=== PATIENT | female | born 1995 | race Caucasian/White ===

== ENCOUNTER 2024-11-29 19:43 | Emergency (ER) | payer SELFPAY ==
[2024-11-29 19:45] VITALS: BP 125/89
[2024-11-29 23:05] VITALS: BMI 22.4
[2024-11-29 23:15] VITALS: BP 202/100
--- NOTE | 2024-11-30 00:13 | ED.GENMED ---
History of Present Illness
General
Chief Complaint: Back Pain
Source: patient
Exam Limitations: none
Time Seen by Provider: 11/29/24 22:34
Nursing documentation reviewed up to this point in time: agreed with
History of Present Illness
History of Present Illness:
Patient to ED with left lower back pain radiating down LLE. Symptoms started apptox 6 mos ago and continue. No history of trauma Denies fever/chills No bowel or bladder issues, no saddle paresthesia, no weakness in extremities. brought self to
eD for eval
Past History
Past History
ED Past Medical History: None
Review of Systems
Review of Systems
Allergies reviewed?: Yes
All Other Systems: ROS reviewed and negative except as documented in HPI and ROS
Constitutional: Reports no symptoms
EENT: Reports no symptoms
Respiratory: Reports no symptoms
Cardiac: Reports no symptoms
ABD/GI: Reports no symptoms
: Reports no symptoms
Musculoskeletal: Reports back pain (left lower back pain with radiatin to LLE)
Skin: Reports no symptoms
Neurological: Reports no symptoms
Psychiatric: Reports no symptoms
Phy Exam
General Physical Exam
General Presentation: well appearing and mild distress
General age: appears stated age
General Skin: warm and dry
General Habitus: normal
General Mental: alert
Gastrointestinal Exam
Gastrointestinal Exam: non tender and soft
Musculoskeletal Exam
Musculoskeletal Exam: full ROM and neuro vasc intact
Skin Exam
Skin Exam: normal color, warm/dry and no rash
Psychiatric Exam
Psychiatric Exam: normal mood/affect
Course
Orders/Labs/Results
Orders:
Orders
11/29/24 22:55
Lumbar Spine Complete, 4 View [CR Lumbar Spine Comp Min 4 Vw*] Urgent
Comment:
Reason For Exam: left pain
11/30/24 00:08
Prednisone [Deltasone] 40 mg PO NOW STA
Vital Signs
Initial and Last Documented VS:
Initial Vital Signs
Temp Pulse Resp BP Pulse Ox
98.2 F 77 20 125/89 99
11/29/24 19:45 11/29/24 19:45 11/29/24 19:45 11/29/24 19:45 11/29/24 19:45
Last Documented Vital Signs
Temp Pulse Resp BP Pulse Ox
98.2 F 72 14 189/84 97
11/29/24 19:45 11/30/24 00:30 11/30/24 00:30 11/30/24 00:30 11/30/24 00:30
*Radiology
Radiology exam reviewed: radiology read reviewed
*Pulse Oximetry
SaO2: 98
Oxygen Mode of Delivery: Room air
Patient hypoxic: no
*Critical Care Note
Total Time (30-74mins, 75-104mins- exclusive of procedures): Not Applicable
Update Note
Update Note:
Patient to ED with left low back pain radiating to LLE. No history of trauma. No weakness in extremities, no bowel or bladder issues. No concern for cauda equina. XRay reviewed, no concerning findings. Will discharge home on prednisone taper.
Given number for pain management follow up . Given instructions on s/s to return to ED and sh is agreeable to plan
ED Attending Note
-
Portions of this chart may have been created with voice recognition software.� Occasional wrong word or��sound alike� substitutions may have occurred due to the inherent limitations of voice recognition software.
Discharge Plan
Departure
Patient Disposition: Home (Routine Discharge)
Date of Disposition: 11/30/24
Time of Disposition: 00:09
Patient with high blood pressure during this ER visit?: No
Condition: Good
Covid-19: Not Applicable
Discharge Problem:
Sciatica
Instructions: Sciatica (DC)
Prescriptions:
New
prednisone 10 mg Tablet
See Rx Instructions .ROUTE .COMPLEX Qty: 30 0RF
Rx Instructions:
Take By Mouth:
40 mg daily x3 days, 30 mg daily x3 days,
20 mg daily x3 days, 10 mg daily x3 days.
meloxicam 7.5 mg tablet
7.5 mg PO DAILY PRN (Reason: pain) Qty: 14 0RF
Referrals:
Federico Singh MD [Active, Orthopedics] - Next open appointment
Interventions
Interventions:
*Risk Screen - Suicide Last Done: 11/30/24 00:00
*General Assessment Last Done: 11/29/24 19:45
*Neglect/Abuse Screening Last Done: 11/29/24 23:08
*ED- Fall Risk Assessment Last Done: 11/29/24 23:08
*ED COVID-19 Vaccine History Last Done: 11/29/24 23:08
*ED Influenza Vaccine History Last Done: 11/29/24 23:08
*Nursing Disposition Last Done: 11/30/24 00:30
ED-Musculoskeletal Assessment Last Done: 11/29/24 23:07
Discharge Date and Time
Print Language: CHILEAN
Musculoskeletal Injury Exam
Musculoskeletal Injury Exam
Left Lower Back:
Pain with Movement?: Moderate
Tender to palpation?: Moderate
Soft tissue swelling?: None
External deformity and angulation?: None
Joint effusion?: None
Contusion?: None
Hematoma-local bleeding into tissue?: None
Strain- Sprain- Tear (Connective tissue injury)?: Moderate
Crepitus with movement?: No
Joint instability?: No
Malalignment/deformity?: No
Range of motion: Full
Distal skin color and temperature: normal-warm & good color
Capillary Refill: normal
Normal distal neurovascular exam?: Yes
[2024-11-30] MEDS: DELTASONE 40 MG PO (00:24)
[2024-11-30 00:30] VITALS: BP 189/84
== END 2024-11-30 00:30 | disposition home or self-care (01) ==
LOC: EMR 19:43
PROVIDERS: EMERGENCY PHYSICIAN Emergency Medicine
DX: M54.42 Lumbago with sciatica, left side (principal)
CPT/HCPCS: 99283; 72110